=== PATIENT | male | born 1985 | race Caucasian/White ===

== ENCOUNTER → 2020-03-28 09:58 | Outpatient (BNVA) | payer MEDICAID, SELFPAY | PROVIDERS: Family Provider Family Medicine; PCP Family Medicine; Visit Provider Specialist | DX: G40.309 Generalized idiopathic epilepsy and epileptic syndromes, not intractable, without status epilepticus (principal) | CPT/HCPCS: 95816 ==

== ENCOUNTER → 2020-07-04 13:31 | Outpatient (BNVA) | payer MEDICAID, SELFPAY | PROVIDERS: Family Provider Family Medicine; PCP Family Medicine; Referring Provider Family Medicine; Visit Provider Specialist | DX: G40.309 Generalized idiopathic epilepsy and epileptic syndromes, not intractable, without status epilepticus (principal); R25.1 Tremor, unspecified; R63.4 Abnormal weight loss; Z68.1 Body mass index [BMI] 19.9 or less, adult; Z87.891 Personal history of nicotine dependence | CPT/HCPCS: 99205 ==

== ENCOUNTER 2020-09-05 09:31 | Outpatient (CLI) | payer MEDICAID, SELFPAY ==
[2020-09-05 11:01] LABS: Folate Level 8.2 ng/mL (4.5-32.2); Thyroid Stimulating Hormone 2.46 uIU/mL (0.27-4.20); Vitamin B12 493 pg/mL (232-1245)
[2020-09-05 11:35] LABS: Free T4 Free Thyroxine 0.91 ng/dL (0.82-1.77); T3 Free 3.2 PG/ML (2.0-4.4)
== END 2020-09-05 09:32 | disposition home or self-care (01) ==
PROVIDERS: PCP Family Medicine; Visit Provider Specialist
DX: R63.4 Abnormal weight loss (principal)
CPT/HCPCS: 36415; 82607; 82746; 84439; 84443; 84481

== ENCOUNTER 2020-09-07 13:07 | Outpatient (CLI) | payer MEDICAID, SELFPAY ==
[2020-09-07 13:50] LABS: Total Volume Urine 2650 ml
[2020-09-07 14:09] LABS: Creatinine 24 Hour Urine 715.5 mg/dL (955-2936); Urine Creatinine 27 mg/dL (39-259)
[2020-09-10 12:36] LABS: 24 Hour Urine Volume 1000 mL; 5-HIAA, 24 Hour Urine 0.3 mg/24 h (<=6.0)
[2020-09-16 17:47] LABS: Arsenic, 24 Hour Urine <10 mcg/L (< OR = 80); Lead, 24 Hour Urine <10 mcg/L (< 80); Mercury, 24 Hour Urine <4 mcg/L
== END 2020-09-07 13:08 | disposition home or self-care (01) ==
PROVIDERS: PCP Family Medicine; Visit Provider Specialist
DX: R63.4 Abnormal weight loss (principal)
CPT/HCPCS: 82175; 82570; 83497; 83655; 83825

== ENCOUNTER → 2020-10-05 07:50 | Outpatient (BNVA) | payer MEDICAID, SELFPAY | PROVIDERS: PCP Family Medicine; Visit Provider Specialist | DX: G25.0 Essential tremor (principal); R63.4 Abnormal weight loss; Z68.1 Body mass index [BMI] 19.9 or less, adult; Z87.891 Personal history of nicotine dependence | CPT/HCPCS: 99213 ==

== ENCOUNTER 2020-12-08 08:19 | Outpatient (CLI) | payer MEDICAID, SELFPAY ==
--- NOTE | 2020-12-08 08:27 | XR_ITS ---
WS: [id number] XR chest 2V* [id number] REASON FOR EXAM: R63.4 - Abnormal weight loss FINDINGS: Mild tortuosity of the thoracic aorta without aneurysmal dilatation. Heart size is normal. There is flattening of the hemidiaphragms and overall increased lucency of both lungs compatible with hyperexpansion. There are calcified granulomatous changes. No acute pulmonary parenchymal or pleural abnormality is identified. Bony thorax is intact. XR/XR chest 2V* [id number] IMPRESSION: No acute abnormality
[2020-12-08 08:55] LABS: Basophils # 0.1 10^3/uL (0.0-0.1); Basophils % 1.1 %; Eosinophils # 0.1 10^3/uL (0.0-0.8); Eosinophils % 1.6 %; Hematocrit 41.2 % (42.0-52.0); Hemoglobin 13.9 g/dL (11.7-16.6); Lymphocytes # 1.5 10^3/uL (0.8-4.8); Lymphocytes % 27.2 %; Mean Corpuscular HGB Conc 33.7 g/dL (30.0-36.0); Mean Platelet Volume 11.3 fL (7.4-10.4); Monocytes # 0.7 10^3/uL (0.2-0.9); Monocytes % 11.6 %; Neutrophils # 3.26 10^3/uL (1.8-7.7); Neutrophils % 58.3 %; Nucleated Red Blood Cells % 0 %; Platelet Count 272 10^3/cmm (130-400); Red Blood Count 4.48 10^6/uL (4.1-5.3); Red Cell Distribution Width 12.1 % (12.1-15.1); White Blood Count 5.6 10^3/uL (4.0-10.0)
[2020-12-08 09:37] LABS: Alanine Aminotransferase 12 U/L (0-41); Albumin Level 4.3 g/dL (3.5-5.2); Alkaline Phosphatase 72 IU/L (40-130); Anion Gap 12.5 (5-19); Aspartate Amino Transferase 16 U/L (0-40); Blood Urea Nitrogen 5 mg/dL (6-20); Calcium 8.9 mg/dL (8.5-10.5); Carbon Dioxide 28 mmol/L (22-29); Chloride 105 mmol/L (98-107); Globulin 2.7 g/dL (1.3-4.6); Glucose 99 mg/dL (65-115); Osmolality Calculated 291 mOsm/kg (285-295); Potassium 3.5 mmol/L (3.5-5.1); Sodium 142 mmol/L (136-145); Thyroid Stimulating Hormone 1.92 uIU/mL (0.27-4.20); Total Bilirubin 0.5 mg/dL (0.15-1.2); Vitamin B12 524 pg/mL (232-1245)
[2020-12-08 10:16] LABS: HIV 1 & 2 Antibody Non-Reactive (Non-Reactiv); HIV 1 & 2 Antigen Non-Reactive (Non-Reactiv)
[2020-12-08 10:17] LABS: Free T4 Free Thyroxine 1.08 ng/dL (0.82-1.77); T3 Free 2.9 PG/ML (2.0-4.4)
== END 2020-12-08 08:20 | disposition home or self-care (01) ==
PROVIDERS: PCP Family Medicine; Visit Provider Specialist
DX: R63.4 Abnormal weight loss (principal)
CPT/HCPCS: 36415; 71046; 80053; 82607; 82746; 84439; 84443; 84481; 85025; 87806

== ENCOUNTER → 2021-03-13 12:29 | Outpatient (BNVA) | payer MEDICAID, SELFPAY | PROVIDERS: PCP Family Medicine; Visit Provider Specialist | DX: G40.309 Generalized idiopathic epilepsy and epileptic syndromes, not intractable, without status epilepticus (principal); G25.0 Essential tremor; R63.4 Abnormal weight loss; Z68.1 Body mass index [BMI] 19.9 or less, adult; Z87.891 Personal history of nicotine dependence | CPT/HCPCS: 99213; 99214 ==